=== PATIENT | male | born 1995 | race Caucasian/White ===

== ENCOUNTER 2019-08-22 11:07 | Emergency (ER) | payer BC ==
[~2019-08-22] VITALS: Ht 182.9 cm; Wt 79.5 kg
[2019-08-22 11:14] VITALS: BP 128/86; TEMP 98.1
[2019-08-22] MEDS ORDERED: ADDERALL20 MG PO (11:21)
[2019-08-22] MEDS ORDERED: PROPECIA1 MG PO (11:22)
[2019-08-22 12:01] VITALS: PULSE 72
== END 2019-08-22 12:00 | disposition home or self-care (01) ==
LOC: COL.ER 11:07
DX: S61.211A Laceration without foreign body of left index finger without damage to nail, initial encounter (principal); Z23 Encounter for immunization; W26.8XXA Contact with other sharp object(s), not elsewhere classified, initial encounter; Y92.009 Unspecified place in unspecified non-institutional (private) residence as the place of occurrence of the external cause